=== PATIENT | female | born 1995 | race Hispanic/Latino ===

== ENCOUNTER 2023-07-09 11:41 | Observation (INO) | payer BC ==
[~2023-07-09] VITALS: Ht 170.2 cm; Wt 108.0 kg
[2023-07-09] MEDS: SODIUM CHLORIDE 0.9% 1000ML 1,000 ML IV ONE ×2 (12:15→12:16)
[2023-07-09 12:32] LABS: BASOPHILS % 0.2 % (0.0-1.0); EOSINOPHILS % 0.3 % (0.0-6.0); HEMATOCRIT 42.7 % (34.2-44.1); HEMOGLOBIN 14.8 g/dL (12.0-16.0); LYMPHOCYTES # (AUTO) 1.5 (1.0-3.2); LYMPHOCYTES % 11.9 % (18.0-39.1); MEAN CORPUSCULAR HEMOGLOBIN 30.8 pg (28-32); MEAN CORPUSCULAR HGB CONC 34.7 g/dL (31-35); MEAN CORPUSCULAR VOLUME 88.8 fL (81-99); MONOCYTES # (AUTO) 0.7 (0.2-0.8); MONOCYTES % 5.3 % (4.4-11.3); NEUTROPHILS # (AUTO) 10.6 (2.1-6.9); NEUTROPHILS % 81.8 % (38.7-80.0); PLATELET COUNT 354 x10e3/uL (140-360); RED BLOOD COUNT 4.81 x10e6/uL (3.6-5.1); RED CELL DISTRIBUTION WIDTH 12.3 % (11.7-14.4); WHITE BLOOD COUNT 12.96 x10e3/uL (4.8-10.8)
[2023-07-09 12:47] LABS: AMPHETAMINES SCREEN,URINE NEGATIVE (NEGATIVE); OPIATES SCREEN,URINE NEGATIVE (NEGATIVE); PHENCYCLIDINE SCREEN,URINE NEGATIVE (NEGATIVE)
[2023-07-09 12:48] LABS: BENZODIAZEPINES SCREEN,URINE NEGATIVE (NEGATIVE); CANNABINOIDS SCREEN,URINE NEGATIVE (NEGATIVE); METHADONE SCREEN, URINE NEGATIVE (NEGATIVE)
[2023-07-09 13:07] LABS: ALANINE AMINOTRANSFERASE 106 IU/L (0-55); ALBUMIN 4.5 g/dL (3.5-5.0); ALKALINE PHOSPHATASE 80 IU/L (40-150); ANION GAP 17.6 mmol/L (8-16); BILIRUBIN,TOTAL 0.8 mg/dL (0.2-1.2); BLOOD UREA NITROGEN 9 mg/dL (7-26); BUN/CREATININE RATIO 11 (6-25); CARBON DIOXIDE 22 mmol/L (22-29); CHLORIDE 101 mmol/L (98-107); CREATININE, SERUM 0.84 mg/dL (0.57-1.11); EST GLOMERULAR FILTRATION RATE 99 ML/MIN (>=60); GLUCOSE 99 mg/dL (74-118); POTASSIUM 3.6 mmol/L (3.5-5.1); SODIUM 137 mmol/L (136-145)
[2023-07-09 13:41] LABS: TROPONIN I < 0.001 ng/mL (0-0.300)
[2023-07-09 13:57] LABS: BILIRUBIN,URINE NEGATIVE (NEGATIVE); CLARITY,URINE CLEAR (CLEAR); COLOR,URINE YELLOW (YELLOW); GLUCOSE, URINE NEGATIVE (NEGATIVE); KETONES,URINE NEGATIVE (NEGATIVE); LEUKOCYTE ESTERASE ,URINE NEGATIVE (NEGATIVE); NITRITE,URINE NEGATIVE (NEGATIVE); PH,URINE 6 (5 - 7); PROTEIN,URINE DIPSTICK NEGATIVE (NEGATIVE); URINE UROBILINOGEN 0.2 mg/dL (0.2 - 1)
[2023-07-09 13:58] LABS: FREE T4 (FREE THYROXINE) 1.49 ng/dL (0.8-1.8); THYROID STIMULATING HORMONE 0.112 uIU/mL (0.350-4.940)
[2023-07-09 14:07] LABS: EPITHELIAL CELLS,URINE FEW /LPF
[2023-07-09] MEDS ORDERED: ONDANSETRON HCL INJ 2MG/ML 2ML 2 MG/ML VIAL IV PRN (14:45)
[2023-07-09] MEDS: METOPROLOL TARTRATE INJ 1 MG/ML VIAL IV ONE ×2 (14:58→21:47)
[2023-07-09] MEDS: SODIUM CHLORIDE FLUSH 10 ML SYR IV PRN (14:58)
[2023-07-09 16:33] VITALS: BP 128/88; PULSE 136; RESP 18; TEMP 99.9; O2SAT 100
[2023-07-09 20:00] VITALS: BP 121/81; PULSE 138; RESP 21; TEMP 99.8; O2SAT 100
[2023-07-09] MEDS: SODIUM CHLORIDE 0.9% 1000ML 1,000 ML IV SCH (21:47)
[2023-07-09] MEDS: METOPROLOL TARTRATE 50 MG TAB PO SCH (21:48)
[2023-07-10] VITALS: BP 95/63; PULSE 103; RESP 20; TEMP 97.8; O2SAT 98
[2023-07-10 04:20] VITALS: BP 104/66; PULSE 102; RESP 18; TEMP 98.7; O2SAT 98
[2023-07-10] MEDS: LEVOTHYROXINE SODIUM 100 MCG TAB PO SCH (05:28)
[2023-07-10 06:21] LABS: BASOPHILS % 0.3 % (0.0-1.0); EOSINOPHILS % 0.4 % (0.0-6.0); HEMATOCRIT 37.5 % (34.2-44.1); HEMOGLOBIN 12.4 g/dL (12.0-16.0); LYMPHOCYTES # (AUTO) 1.7 (1.0-3.2); LYMPHOCYTES % 24.7 % (18.0-39.1); MEAN CORPUSCULAR HEMOGLOBIN 30.2 pg (28-32); MEAN CORPUSCULAR HGB CONC 33.1 g/dL (31-35); MEAN CORPUSCULAR VOLUME 91.5 fL (81-99); MONOCYTES # (AUTO) 0.6 (0.2-0.8); MONOCYTES % 8.7 % (4.4-11.3); NEUTROPHILS # (AUTO) 4.6 (2.1-6.9); NEUTROPHILS % 65.3 % (38.7-80.0); PLATELET COUNT 257 x10e3/uL (140-360); RED CELL DISTRIBUTION WIDTH 12.7 % (11.7-14.4)
[2023-07-10 06:45] LABS: ALBUMIN 3.4 g/dL (3.5-5.0); ANION GAP 14.3 mmol/L (8-16); BILIRUBIN,TOTAL 0.7 mg/dL (0.2-1.2); CALCIUM 8.7 mg/dL (8.4-10.2); CREATININE, SERUM 0.77 mg/dL (0.57-1.11); TOTAL PROTEIN 6.7 g/dL (6.5-8.1)
[2023-07-10 06:50] LABS: POTASSIUM 3.3 mmol/L (3.5-5.1)
[2023-07-10 07:47] VITALS: BP 102/68; PULSE 93; RESP 18; TEMP 98.1; O2SAT 98
[2023-07-10 11:29] VITALS: BP 112/81; PULSE 95; RESP 18; TEMP 98.2; O2SAT 97
[2023-07-10] MEDS ORDERED: SYNTHROID100 MCG PO (13:22)
[2023-07-10] MEDS ORDERED: METOPROLOL TART50 MG PO (13:22)
[2023-07-10] MEDS ORDERED: ONDANSETRON HCL 4 MG ORAL DISINTEGRATING TAB PO PRN (13:45)
== END 2023-07-10 14:28 | disposition home or self-care (01) ==
LOC: ER 11:47 → ERHOLD 14:38 → MED/SURG2 16:08
PROVIDERS: ADMIT Internal Medicine; ATTEND Internal Medicine
DX: R00.0 Tachycardia, unspecified (principal); E03.9 Hypothyroidism, unspecified; I10 Essential (primary) hypertension; E78.5 Hyperlipidemia, unspecified; E66.9 Obesity, unspecified; Z68.37 Body mass index [BMI] 37.0-37.9, adult; R79.89 Other specified abnormal findings of blood chemistry
CPT/HCPCS: 36415 ×2; 71045; 80053 ×2; 80307; 81001; 83735; 83880; 84439; 84443; 84484; 84702; 85025 ×2; 87040; 93005; 93306; 94760; 99284; G0378 ×2; J7030 ×2; U0002